=== PATIENT | female | born 1965 | race Two or more races ===

== ENCOUNTER 2020-08-04 10:30 | Inpatient (IN) | payer OTHER ==
[~2020-08-04] VITALS: Ht 160 cm; Wt 73.0 kg
[2020-08-04] MEDS ORDERED: ARMOUR THYROID90 MG PO (15:00)
[2020-08-04] MEDS ORDERED: CRESTOR10 MG PO (15:00)
[2020-08-04] MEDS ORDERED: COZAAR50 MG PO (15:00)
[2020-08-04] MEDS ORDERED: ADULT LOW DOSE81 M1 PO (15:01)
[2020-08-12] MEDS ORDERED: HYOSCYAMINE0.125 M1 SL (10:48)
[2020-08-12] MEDS ORDERED: TRAMADOL HCL50 MG PO (10:48)
[2020-08-12] MEDS ORDERED: INTESTINEX680 M1 PO (10:48)
[2020-08-12] MEDS ORDERED: PANTOPRAZOLE SO40 MG PO (10:49)
[2020-08-12] MEDS ORDERED: FLAGYL500MG PO (10:50)
== END 2020-08-12 14:01 | disposition home or self-care (01) | DRG 331 ==
LOC: O/R 08-09 10:17 → SURG 08-09 10:17 → SURH 08-09 10:30 → SURG 08-09 17:36
PROVIDERS: ADMIT Surgery; ATTEND Surgery
PROC: 0DBP4ZZ Excision of Rectum, Percutaneous Endoscopic Approach (ICD-10-PCS; 2020-08-09)
PROC: 0DBN4ZZ Excision of Sigmoid Colon, Percutaneous Endoscopic Approach (ICD-10-PCS; principal; 2020-08-09 13:15)
DX: K57.20 Diverticulitis of large intestine with perforation and abscess without bleeding (principal); I12.9 Hypertensive chronic kidney disease with stage 1 through stage 4 chronic kidney disease, or unspecified chronic kidney disease; N18.2 Chronic kidney disease, stage 2 (mild); E78.5 Hyperlipidemia, unspecified; E03.9 Hypothyroidism, unspecified; F17.200 Nicotine dependence, unspecified, uncomplicated

== ENCOUNTER 2020-08-28 12:28 | Inpatient (IN) | payer OTHER ==
[~2020-08-28] VITALS: Ht 160 cm; Wt 5.0 kg
[~2020-08-28 12:28] MED LIST: ADULT LOW DOSE81 M1 PO; ARMOUR THYROID90 MG PO; COZAAR50 MG PO; CRESTOR10 MG PO; FLAGYL500MG PO; HYOSCYAMINE0.125 M1 SL; INTESTINEX680 M1 PO; PANTOPRAZOLE SO40 MG PO; TRAMADOL HCL50 MG PO
[2020-09-03] MEDS ORDERED: INTESTINEX680 M1 PO (08:30)
== END 2020-09-03 09:02 | disposition home or self-care (01) | DRG 373 ==
LOC: ER 12:28 → SURG 08-29 10:23
PROVIDERS: ADMIT Surgery; ATTEND Surgery
PROC: BW2110Z Computerized Tomography (CT Scan) of Abdomen and Pelvis using Low Osmolar Contrast, Unenhanced and Enhanced (ICD-10-PCS; 2020-08-28)
PROC: 8E0ZXY6 Isolation (ICD-10-PCS; principal; 2020-08-30)
DX: A04.72 Enterocolitis due to Clostridium difficile, not specified as recurrent (principal); K62.89 Other specified diseases of anus and rectum; K57.30 Diverticulosis of large intestine without perforation or abscess without bleeding; I12.9 Hypertensive chronic kidney disease with stage 1 through stage 4 chronic kidney disease, or unspecified chronic kidney disease; N18.2 Chronic kidney disease, stage 2 (mild); E78.5 Hyperlipidemia, unspecified; E03.9 Hypothyroidism, unspecified; F17.200 Nicotine dependence, unspecified, uncomplicated; Z90.49 Acquired absence of other specified parts of digestive tract